=== PATIENT | female | born 1995 | race Hispanic/Latino ===

== ENCOUNTER 2024-06-26 18:50 | Emergency (ER) | payer MEDICAID, OTHER ==
[~2024-06-26] VITALS: Ht 157.5 cm; Wt 113.4 kg
[2024-06-26] MEDS ORDERED: CYCL7.5T27 PO (19:24)
[2024-06-26] MEDS ORDERED: NAPR375T6 PO (19:24)
[2024-06-26] MEDS: NAPROXEN 250 MG TAB PO ONE (19:40)
[2024-06-26 19:52] VITALS: BP 130/79; PULSE 99; RESP 18; O2SAT 98
== END 2024-06-26 19:53 | disposition home or self-care (01) ==
LOC: EDH 18:50
DX: S46.811A Strain of other muscles, fascia and tendons at shoulder and upper arm level, right arm, initial encounter (principal); S46.812A Strain of other muscles, fascia and tendons at shoulder and upper arm level, left arm, initial encounter; E11.9 Type 2 diabetes mellitus without complications; F31.9 Bipolar disorder, unspecified; Z88.0 Allergy status to penicillin; Z90.49 Acquired absence of other specified parts of digestive tract; V89.2XXA Person injured in unspecified motor-vehicle accident, traffic, initial encounter; Y93.89 Activity, other specified; Y92.488 Other paved roadways as the place of occurrence of the external cause; Y99.8 Other external cause status